=== PATIENT | male | born 1995 | race Caucasian/White ===

== ENCOUNTER → 2025-08-20 09:07 | Outpatient (REF) | payer OTHER, SELFPAY | LOC: OHS 09:07 | PROVIDERS: ATTENDING PHYSICIAN Nurse Practitioner Family | DX: Z23 Encounter for immunization (principal) | CPT/HCPCS: 36415; 86480; 86706; 86735; 86762; 86765; 86787 ==

== ENCOUNTER → 2025-11-02 12:26 | Outpatient (REF) | payer OTHER, SELFPAY | LOC: OHS 12:26 | PROVIDERS: ATTENDING PHYSICIAN Nurse Practitioner Family | DX: Z23 Encounter for immunization (principal) | CPT/HCPCS: 36415; 86706 ==